=== PATIENT | male | born 1955 | race Caucasian/White ===

== ENCOUNTER 2020-03-22 13:38 | Inpatient (IN) | payer BC, OTHER ==
[~2020-03-22] VITALS: Ht 175.3 cm; Wt 79.4 kg
--- NOTE | 2020-03-22 13:50 | NUR ---
Pt is medically cleared by Dr Orellana. PET program manager Mercedes Vargas RN notified. ETA 1 hour.
[2020-03-22] MEDS ORDERED: ASPI81TA31 PO (13:55)
[2020-03-22] MEDS ORDERED: ATOR40TA PO (13:55)
[2020-03-22] MEDS ORDERED: [UNRECOGNIZED DRUG - OTHER] PO (13:55)
[2020-03-22] MEDS ORDERED: DOCU-141 PO (13:55)
[2020-03-22] MEDS ORDERED: LORA-258 PO (13:55)
--- NOTE | 2020-03-22 15:22 | NUR ---
Snack provided per pt request. walking in the room w/ steady gait. NAD noted.Awating PET qa auditor.
--- NOTE | 2020-03-22 15:40 | NUR ---
Mercedes Ambriz RN from PET at the bedside for psych eval.
[2020-03-22] MEDS ORDERED: LORAZEPAM 0.5 MG TABLET PO ONE (16:15)
[2020-03-22] MEDS ORDERED: LORAZEPAM 1 MG TABLET ONE (16:17)
--- NOTE | 2020-03-22 16:17 | NUR ---
PT walked in to the boothroom and spat out the Ativan PO. Dr Orellana and Mercedes made aware.
--- NOTE | 2020-03-22 16:31 | NUR ---
Pt placed on 5150 hold for GD by Mercedes Ambriz RN.
[2020-03-22 17:00] VITALS: BP 149/94
[2020-03-22] MEDS ORDERED: MAGNESIUM HYDROXIDE 30 ML LIQUID UDC PO PRN (17:30)
[2020-03-22] MEDS ORDERED: LORAZEPAM 1 MG TABLET PO PRN (17:30)
[2020-03-22] MEDS ORDERED: TEMAZEPAM 7.5 MG CAPSULE PO PRN (17:30)
[2020-03-22] MEDS ORDERED: ACETAMINOPHEN 325 MG TABLET PO PRN (17:30)
[2020-03-22] MEDS ORDERED: MAG HYDROX/AL HYDROX/SIMETH 30 ML LIQUID UDC PO PRN (17:30)
[2020-03-22] MEDS ORDERED: BLOOD SUGAR DIAGNOSTIC 1 EACH STRIP VI ONE (17:30)
--- NOTE | 2020-03-22 19:41 | NUR ---
Admitted a 64 years old male patient from ER at 5PM, admitted for GD and on 72hr hold. Patient is AAO x 3, able to express needs. No complains of pain. Vital signs stable. BS checked and 143mg/dl. Patient signed all admission paper works. Initial assessment done. Patient denies and SI while assessment being done. Patient noted being anxious but cooperative and compliant with care. Medication verified by RN mixing and dispensing supervisor. Patient informed regarding rights and hospital policies. Patient requested for family (Emergency contact )to be notified in AM. Needs attended, safety measures in place, endorsed to next shift and will continue with care.
[2020-03-22 20:00] VITALS: BP 140/88
--- NOTE | 2020-03-22 20:32 | NUR ---
Patient received walking in the hallway. AAO x3. Calm and cooperative. History was taken from the patient and he expressed his anxiety about his health. No SI. No behavioral issues. Safety measures maintained. Continue to monitor.
[2020-03-22] MEDS ORDERED: DOCUSATE SODIUM 100 MG CAPSULE PO PRN (22:45)
[2020-03-23 02:31] VITALS: BP 140/88
[2020-03-23 06:19] LABS: EOSINOPHILS # (AUTO) 0.1 K/uL (0.0-0.7); EOSINOPHILS % (AUTO) 1.2 % (0.0-7.0); LYMPHOCYTES # (AUTO) 0.7 K/uL (20.0-40.0); MEAN CORPUSCULAR HGB CONC 33 g/dL (32.5-36.3); MONOCYTES # (AUTO) 0.3 K/uL (2.0-10.0)
[2020-03-23 06:39] LABS: BASOPHILS % (AUTO) 0.7 % (0.0-2.0); HEMATOCRIT 36.6 % (36.7-47.1); HEMOGLOBIN 12.1 g/dL (12.5-16.3); LYMPHOCYTES % (AUTO) 11.2 % (20.5-51.5); MEAN CORPUSCULAR HEMOGLOBIN 30.8 uug (23.8-33.4); MONOCYTES % (AUTO) 4.8 % (0.0-11.0); NEUTROPHILS # (AUTO) 4.8 K/uL (1.8-8.9); NEUTROPHILS % (AUTO) 82.1 % (38.5-71.5); PLATELET COUNT (AUTO) 170 K/uL (152-348); RED BLOOD CELL COUNT(AUTO) 3.93 MIL/uL (4.06-5.63); WHITE BLOOD COUNT (AUTO) 5.9 K/uL (3.6-10.2)
[2020-03-23 06:49] LABS: THYROID STIMULATING HORMONE 2.034 mIU/mL (0.358-3.740)
[2020-03-23 07:08] LABS: POTASSIUM 4.4 mmol/L (3.5-5.1); TOTAL PROTEIN, SERUM 7.4 g/dL (6.4-8.2)
[2020-03-23 07:30] VITALS: BP 159/90
[2020-03-23] MEDS ORDERED: [UNRECOGNIZED DRUG - OTHER] PO SCH (09:00)
[2020-03-23] MEDS: CLONIDINE HCL 0.1 MG TABLET PO PRN (09:22)
[2020-03-23] MEDS: ASPIRIN 81 MG TAB.CHEW PO SCH (09:25)
--- NOTE | 2020-03-23 12:24 | NUR ---
UR Note: This speech writer spoke with nurse outreach case manager Jeanette ([phone]) who stated that patient is authorized for 15 days until April 05. Authorization: [id number]. Per Jeanette, she is cover for the nurse outreach case manager assigned for pt Tri ([phone]) extension: [phone].
--- NOTE | 2020-03-23 12:24 | NUR ---
Social Work Family Contact: This senior underwriter attempted to contact patient's brother Spike ([phone]) but was unavailable.
--- NOTE | 2020-03-23 12:24 | NUR ---
Social Work Initial Discharge Note: Patient currently lives at [address] [place] [address] and would want to return back home. This sign writer letterer or painter attempted to contact patient's brother Spike ([phone]) but was unavailable. This sign writer letterer or painter will work with the family and the MD regarding patient's discharge plan.
[2020-03-23 14:02] LABS: CREATININE 0.7 mg/dL (0.6-1.3)
[2020-03-23 14:12] LABS: MAGNESIUM 2.3 mg/dL (1.8-2.4)
[2020-03-23 14:13] LABS: PHOSPHOROUS 3.9 mg/dL (2.5-4.9)
--- NOTE | 2020-03-23 14:44 | NUR ---
Social Work Family Contact: motion picture set up worker contacted patient's brother Spike ([phone]) and gathered collateral. Per brother, he stated that he is the best contact number and not patient's mother who is demented. Per Spike, he stated that ever since patient lost his job couple of months ago he has been depressed. He has not been eating at home and has lost weight and a month ago he has decreased. Per brother, he stated that patient was prescribed Zoloft and had never took his medications. Per brother, he states that patient believes that his situation is physical and not mental.
[2020-03-23 16:00] VITALS: BP 125/86
[2020-03-23 20:00] VITALS: BP 135/91
[2020-03-23] MEDS: ATORVASTATIN 40 MG TABLET PO SCH (20:24)
[2020-03-23] MEDS: MIRTAZAPINE 15 MG TABLET PO SCH (22:37)
--- NOTE | 2020-03-24 02:32 | NUR ---
GPS: RECEIVE PT AWAKE, A/O X3, VERBALLY COMMUNICATE NEEDS CLEARLY. PT DENIED SI, AND NO INTENT. PT NOTED TO BE A BIT TOO OVER CONCERN WITH HIS HEALTH AND MEDICATIONS. PT WAS ASKING IF HE IS DRINKING ENOUGH WATER FOR HIS HEALTH. ADVISED PT TO DRINK HE IS TOLERATED AND MONITOR HIS OUTPUT. PT DENIED PAIN OR DISCOMFORT BUT SAID HE WILL POSSIBLY NEED SOMETHING TO SLEEP LATER BUT NOT SURE. ENCOURAGED PT TO REQUEST IF UNABLE TO SLEEP BY 2100. PT NOTED PACING IN HALLWAY ON AND OFF. DOCTOR WAS VISITING AND ORDER NEW MED REMERON 15MG Q/HS. ORDER CARRIED OUT AND PT COOPERATIVE. PT ASLEEP AT THIS TIME AND WILL CONTINUE TO MONITOR.
--- NOTE | 2020-03-24 06:40 | NUR ---
PT RESTED WELL DURING NIGHT AND DID NOT REQUIRED SLEEPING AID. SLEPT 7HRS TOTAL. NO BEHAVIOR NOTED.
[2020-03-24 07:30] VITALS: BP 151/90
[2020-03-24] MEDS: ASPIRIN 81 MG TAB.CHEW PO SCH (09:51)
[2020-03-24] MEDS: LOSARTAN POTASSIUM 50 MG TABLET PO SCH (09:51)
[2020-03-24] MEDS: HYDROCHLOROTHIAZIDE 12.5 MG CAPSULE PO SCH (09:52)
[2020-03-24 16:00] VITALS: BP 157/95
--- NOTE | 2020-03-24 17:58 | NUR ---
Patient 1ST Observed awake in room unkempt with disheveled appearance. Patient is AO x2-3, no acute distress noted. Denies pain. Vital signs stable for patient. Compliant with medication. Continues to require observation to ensure patient safety.
[2020-03-24] MEDS: ATORVASTATIN 40 MG TABLET PO SCH (20:32)
[2020-03-24] MEDS: MIRTAZAPINE 15 MG TABLET PO SCH (20:32)
[2020-03-24 21:36] VITALS: BP 136/86
--- NOTE | 2020-03-24 21:44 | NUR ---
GPS: RECEIVED PT IN HALLWAY, PACING WITH ABLE TO REDIRECT. PT ABLE TO STAY CALM AND COOPERATIVE WITH CARE AT THIS TIME. DENIED SI OR INTENT. C/O POSSIBLE NOT HAVING GOOD BM, OFFER STOOL SOFTER BUT REFUSED. PT SAID WILL LIKE TO SEE IF HE WILL HAVE A GOOD BM BY AM. ENCOURAGE TO VENT OUT FEELINGS AND TO ASK FOR PRN. OFFER PLENTY OF WATER TOLERATED. ROUTINE MEDS GIVEN AND CONTINUE MONITOR.
--- NOTE | 2020-03-25 06:27 | NUR ---
Pt slept 5.45mins due to roommate disturbing during night with finding his shoes and thinking Joey had them. Pt was very calm and even apologetic for roommate behavior.
[2020-03-25 07:30] VITALS: BP 149/93
[2020-03-25] MEDS: HYDROCHLOROTHIAZIDE 12.5 MG CAPSULE PO SCH (08:58)
[2020-03-25] MEDS: ASPIRIN 81 MG TAB.CHEW PO SCH (08:58)
[2020-03-25] MEDS: LOSARTAN POTASSIUM 50 MG TABLET PO SCH (08:58)
--- NOTE | 2020-03-25 10:45 | NUR ---
Patient is AAO x 3, NO acute distress noted,able to express needs. Patient noted being anxious and paranoid about health while doing assessment. Patient is directable, calms down after expressing self and situations are explained back. Pt. is compliant with medications and cooperative with care. Safety measures in place, needs attended and will continue with care.
[2020-03-25 16:00] VITALS: BP 123/80
--- NOTE | 2020-03-25 18:45 | NUR ---
Patient paranoid regarding health, asking for VS to be checked several times. Vital signs stable. No c/o pain. Denies any SI. Compliant with medication therapy and care. Verbalizes needs and concerns. All other need attended, safety measures in place and will continue with care.
[2020-03-25] MEDS: MIRTAZAPINE 15 MG TABLET PO SCH (20:38)
[2020-03-25] MEDS: ATORVASTATIN 40 MG TABLET PO SCH (20:38)
[2020-03-25 21:22] VITALS: BP 137/60
[2020-03-26 07:30] VITALS: BP 121/73
[2020-03-26] MEDS: HYDROCHLOROTHIAZIDE 12.5 MG CAPSULE PO SCH (08:42)
[2020-03-26] MEDS: ASPIRIN 81 MG TAB.CHEW PO SCH (08:42)
[2020-03-26] MEDS: LOSARTAN POTASSIUM 50 MG TABLET PO SCH (08:42)
[2020-03-26 16:00] VITALS: BP 122/71
[2020-03-26] MEDS: MIRTAZAPINE 15 MG TABLET PO SCH (20:12)
[2020-03-26] MEDS: ATORVASTATIN 40 MG TABLET PO SCH (20:12)
[2020-03-26 20:20] VITALS: BP 128/79
--- NOTE | 2020-03-27 06:48 | NUR ---
Danielletim slept 7.30 hrs.Alert and oriented x3, calm and cooperative with medication and care.SAfety measures in place.
[2020-03-27 07:30] VITALS: BP 134/89
[2020-03-27] MEDS: ASPIRIN 81 MG TAB.CHEW PO SCH (08:21)
[2020-03-27] MEDS: HYDROCHLOROTHIAZIDE 12.5 MG CAPSULE PO SCH (08:21)
[2020-03-27] MEDS: LOSARTAN POTASSIUM 50 MG TABLET PO SCH (08:21)
[2020-03-27 15:08] VITALS: BP 139/87
[2020-03-27 19:48] VITALS: BP 127/78
[2020-03-27] MEDS: ATORVASTATIN 40 MG TABLET PO SCH (20:11)
[2020-03-27] MEDS: MIRTAZAPINE 15 MG TABLET PO SCH (20:11)
[2020-03-27] MEDS: risperiDONE 0.5 MG TABLET PO SCH (21:15)
--- NOTE | 2020-03-27 23:56 | NUR ---
aaox3 ambulatory. patient compliant with meds. able to express needs. VSS. No acute distress noted. Kept comfortable.Denies any pain nor any discomfort. Will monitor patient. Continent of bowel and bladder.
--- NOTE | 2020-03-28 05:59 | NUR ---
End of the shift note: Quiet night. Needs attended. Slept well most of the shift. No complaints presented so far. VSS.
[2020-03-28 07:30] VITALS: BP 139/85
[2020-03-28] MEDS: LOSARTAN POTASSIUM 50 MG TABLET PO SCH (08:05)
[2020-03-28] MEDS: HYDROCHLOROTHIAZIDE 12.5 MG CAPSULE PO SCH (08:05)
[2020-03-28] MEDS: ASPIRIN 81 MG TAB.CHEW PO SCH (08:05)
[2020-03-28] MEDS: DIVALPROEX 250 MG TABLET.DR PO SCH ×3 (08:05→17:03)
[2020-03-28] MEDS: risperiDONE 0.5 MG TABLET PO SCH ×2 (08:05→20:18)
--- NOTE | 2020-03-28 14:20 | NUR ---
patient remains isolative no interaction with other peels ,compliant with all medication,denies any pain or discomfort ,will continue close monitoring.
[2020-03-28 16:00] VITALS: BP 137/81
[2020-03-28 19:46] VITALS: BP 134/84
[2020-03-28] MEDS: MIRTAZAPINE 15 MG TABLET PO SCH (20:17)
[2020-03-28] MEDS: ATORVASTATIN 40 MG TABLET PO SCH (20:18)
--- NOTE | 2020-03-28 20:53 | NUR ---
awake upon initial rounds. alert and oriented x3-4 VSS. No acute distress noted. Remain isolative. Mainly stays in his room. Compliant with meds. Needs attended. VSS. Voiding well. Will monitor patient.
--- NOTE | 2020-03-29 06:12 | NUR ---
End of shift notes : Slept well most of the shift. No behavioral issues noted. All needs attended and met. No complaints made during the shift. No distress noted.
[2020-03-29 07:30] VITALS: BP 146/75
--- NOTE | 2020-03-29 08:00 | NUR ---
Received pt. in room, patient is AAO x 3, able to express self. No acute distress noted. Vital signs stable. Denies any SI during assessment. Safety needs in place and will continue with care.
[2020-03-29] MEDS: ASPIRIN 81 MG TAB.CHEW PO SCH (09:00)
[2020-03-29] MEDS: risperiDONE 0.5 MG TABLET PO SCH ×2 (09:00→20:26)
[2020-03-29] MEDS: DIVALPROEX 250 MG TABLET.DR PO SCH ×3 (09:00→17:11)
[2020-03-29] MEDS: HYDROCHLOROTHIAZIDE 12.5 MG CAPSULE PO SCH (09:01)
[2020-03-29] MEDS: LOSARTAN POTASSIUM 50 MG TABLET PO SCH (09:01)
[2020-03-29 16:00] VITALS: BP 131/80
--- NOTE | 2020-03-29 18:00 | NUR ---
Patient is compliant with medications and cooperative with care. No concerns raised by patient regarding health condition. patient stated "feeling better now". Took all due medications and tolerated well. Patient still noted staying to self and stays in the room for most of the shift. Safety needs in place and will continue with care.
[2020-03-29] MEDS: MIRTAZAPINE 15 MG TABLET PO SCH (20:26)
[2020-03-29] MEDS: ATORVASTATIN 40 MG TABLET PO SCH (20:26)
[2020-03-29 21:10] VITALS: BP 142/78
--- NOTE | 2020-03-30 05:27 | NUR ---
Patient slept 6.30 hours last night. Patient got up twice c/o temperature too hot. Declined a sleeping pill and stayed mostly in his room during the evening isolating. When assembly instructions writer asked patient does he feel like he is ready to go home, The response was "Not really. I feel like I am a 4 out of 10." Electromechanical Equipment Assembler tried to get patient to explain further , but patient shut down. No acute issues noted during the night.
[2020-03-30 07:30] VITALS: BP 145/78
[2020-03-30] MEDS: ASPIRIN 81 MG TAB.CHEW PO SCH (08:17)
[2020-03-30] MEDS: risperiDONE 0.5 MG TABLET PO SCH ×2 (08:17→20:52)
[2020-03-30] MEDS: DIVALPROEX 250 MG TABLET.DR PO SCH ×3 (08:17→17:57)
[2020-03-30] MEDS: HYDROCHLOROTHIAZIDE 12.5 MG CAPSULE PO SCH (08:18)
[2020-03-30] MEDS: LOSARTAN POTASSIUM 50 MG TABLET PO SCH (08:19)
[2020-03-30 16:00] VITALS: BP 135/84
--- NOTE | 2020-03-30 18:48 | NUR ---
patient calm and medication compliant. Need encouragement to attend activity.
[2020-03-30 20:26] VITALS: BP 120/76
[2020-03-30] MEDS: ATORVASTATIN 40 MG TABLET PO SCH (20:52)
[2020-03-30] MEDS: MIRTAZAPINE 15 MG TABLET PO SCH (20:52)
--- NOTE | 2020-03-30 21:26 | NUR ---
GPS/NSG Patient firdt observed in room awake appearance disheveled,& unkempt despite compliance with shower after many days he refused. Patient compliant with HS medication. Denies S/I, H/I and verbalized to staff that he was feeling less depressed today and had attended group. Patient continues to require observation for safety.
[2020-03-31 07:30] VITALS: BP 140/78
[2020-03-31] MEDS: LOSARTAN POTASSIUM 50 MG TABLET PO SCH (08:25)
[2020-03-31] MEDS: ASPIRIN 81 MG TAB.CHEW PO SCH (08:25)
[2020-03-31] MEDS: risperiDONE 0.5 MG TABLET PO SCH ×2 (08:25→20:34)
[2020-03-31] MEDS: DIVALPROEX 250 MG TABLET.DR PO SCH ×3 (08:25→17:02)
[2020-03-31] MEDS: HYDROCHLOROTHIAZIDE 12.5 MG CAPSULE PO SCH (08:27)
[2020-03-31 16:00] VITALS: BP 138/75
[2020-03-31 20:17] VITALS: BP 136/83
[2020-03-31] MEDS: ATORVASTATIN 40 MG TABLET PO SCH (20:34)
[2020-03-31] MEDS: MIRTAZAPINE 15 MG TABLET PO SCH (20:34)
--- NOTE | 2020-04-01 06:36 | NUR ---
Received Pt in bed lying down, awake. A+Ox3, pleasant on approach. Pt is withdrawn and isolative, stays in his room despite encouragement to come out to the day room and interact with staff and peers. Denies SI/HI and verbally contracts for safety. Exhibits flat affect, restricted speech, and poor eye contact. Compliant with medications, consumed 100% of snacks. Appears disheveled, refused shower. Denies pain, VS stable.
[2020-04-01 07:55] VITALS: BP 148/84
[2020-04-01] MEDS: HYDROCHLOROTHIAZIDE 12.5 MG CAPSULE PO SCH (08:26)
[2020-04-01] MEDS: DIVALPROEX 250 MG TABLET.DR PO SCH ×3 (08:26→16:53)
[2020-04-01] MEDS: risperiDONE 0.5 MG TABLET PO SCH ×2 (08:26→20:02)
[2020-04-01] MEDS: LOSARTAN POTASSIUM 50 MG TABLET PO SCH (08:26)
[2020-04-01] MEDS: ASPIRIN 81 MG TAB.CHEW PO SCH (08:26)
[2020-04-01 15:22] VITALS: BP 146/80
[2020-04-01] MEDS: CLONIDINE HCL 0.1 MG TABLET PO PRN (19:51)
[2020-04-01 19:52] VITALS: BP 151/88
[2020-04-01] MEDS: ATORVASTATIN 40 MG TABLET PO SCH (20:02)
[2020-04-01] MEDS: MIRTAZAPINE 15 MG TABLET PO SCH (20:02)
--- NOTE | 2020-04-02 06:30 | NUR ---
PT SLEPT 4 HOURS and 30 minutes. PT IN NO ACUTE DISTRESS. PT KEEP ASKING TO MAKE THE TEMPERATURE COLDER . STAFF ADJUSTED THE TEMPERATURE. PRESCRIBED MEDICATION GIVEN AND PT TOLERATED IT WELL. GIVEN SLEEPING MEDICATION PRN. PT TOLERATED IT WELL. SAFETY AND COMFORT PROVIDED. ALL NEEDS ARE MET. WILL ENDORSE TO INCOMING NURSE FOR CONTINUITY OF CARE.
[2020-04-02 07:30] VITALS: BP 145/89
[2020-04-02] MEDS: DIVALPROEX 250 MG TABLET.DR PO SCH ×3 (08:28→16:04)
[2020-04-02] MEDS: LOSARTAN POTASSIUM 50 MG TABLET PO SCH (08:29)
[2020-04-02] MEDS: risperiDONE 0.5 MG TABLET PO SCH ×2 (08:29→20:34)
[2020-04-02] MEDS: ASPIRIN 81 MG TAB.CHEW PO SCH (08:29)
[2020-04-02] MEDS: HYDROCHLOROTHIAZIDE 12.5 MG CAPSULE PO SCH (08:42)
[2020-04-02 16:00] VITALS: BP 132/82
[2020-04-02 20:00] VITALS: BP 133/66
[2020-04-02] MEDS: ATORVASTATIN 40 MG TABLET PO SCH (20:34)
[2020-04-02] MEDS: MIRTAZAPINE 15 MG TABLET PO SCH (20:34)
--- NOTE | 2020-04-03 03:31 | NUR ---
RECEIVED PATIENT IN BED.NOTED ISOLATIVE AND WITHDRAWN WITH LITTLE TO NO INTERACTION WITH PEERS OR STAFF. AFFECT-FLAT.HOWEVER ABLE TO VERBALIZE NEEDS.COMPLIANT WITH CARE AND MEDICATIONS.DENIES SI/HI.VISUAL CHECKS MADE ON HIM FOR SAFETY. WILL CONTINUE TO MONITOR.
--- NOTE | 2020-04-03 06:50 | NUR ---
SLEPT FOR 6:30HOURS. REFUSED TO HAVE LABS DRAWN ON HIM.EDUCATION OF ITS IMPORTANCE DID NOT WORK.
[2020-04-03 07:53] VITALS: BP 147/88
[2020-04-03] MEDS: ASPIRIN 81 MG TAB.CHEW PO SCH (08:24)
[2020-04-03] MEDS: DIVALPROEX 250 MG TABLET.DR PO SCH ×3 (08:24→16:52)
[2020-04-03] MEDS: risperiDONE 0.5 MG TABLET PO SCH ×2 (08:24→20:43)
[2020-04-03] MEDS: HYDROCHLOROTHIAZIDE 12.5 MG CAPSULE PO SCH (08:25)
[2020-04-03] MEDS: LOSARTAN POTASSIUM 50 MG TABLET PO SCH (08:25)
--- NOTE | 2020-04-03 11:10 | NUR ---
FAMILY CONTACT: NOAM contacted Patients brotherSpike ([phone]) to coordinate discharge and transportation. NOAM informed him that pt will be discharged on 04/05/20. Per Spike, he will have pts other brother Bobby ([phone]) pick pt up and transport home and he will call SW to confirm fish bait picker time.
--- NOTE | 2020-04-03 12:10 | NUR ---
UR NOTE: SW contacted case preparer and liner assigned for pt Tri ([phone]) extension: [phone] and left a voicemail requesting psychiatrist appointment and also provided a discharge summary. SW requested callback.
--- NOTE | 2020-04-03 14:49 | NUR ---
FAMILY CONTACT: SW received a call from pts brother Bobby ([phone]) who confirmed he will be picking pt up between 1:00pm-2:30pm and will be transporting pt back home.
[2020-04-03 15:35] VITALS: BP 145/83
[2020-04-03 20:02] VITALS: BP 144/78
[2020-04-03] MEDS: MIRTAZAPINE 15 MG TABLET PO SCH (20:43)
[2020-04-03] MEDS: ATORVASTATIN 40 MG TABLET PO SCH (20:43)
--- NOTE | 2020-04-04 06:38 | NUR ---
Slept 5.45 hrs.
[2020-04-04 07:30] VITALS: BP 144/89
[2020-04-04] MEDS: ASPIRIN 81 MG TAB.CHEW PO SCH (08:41)
[2020-04-04] MEDS: LOSARTAN POTASSIUM 50 MG TABLET PO SCH (08:42)
[2020-04-04] MEDS: DIVALPROEX 250 MG TABLET.DR PO SCH ×3 (08:42→17:24)
[2020-04-04] MEDS: risperiDONE 0.5 MG TABLET PO SCH ×2 (08:42→20:38)
[2020-04-04] MEDS: HYDROCHLOROTHIAZIDE 12.5 MG CAPSULE PO SCH (08:43)
--- NOTE | 2020-04-04 09:59 | NUR ---
NOAM COORDINATION OF CARE: NOAM contacted Network Announcer: Dr. Alexei Burch [address] [facility] [address]. to schedule a follow up appointment for 04/26/20 at 0830. NOAM also contacted Psychiatrist: Dr. John Garcia Address: [address] [place], [place] [id number] and left a voicemail for callback.
--- NOTE | 2020-04-04 12:38 | NUR ---
SW COORDINATION OF CARE: SW contacted Psychiatrist: Dr. John Garcia Address: [address] [place] [id number] and spoke with Mckenna, medical receptionist who stated SW needed to contact [facility] Address: [address], [place] [address] for referral.
--- NOTE | 2020-04-04 12:42 | NUR ---
NOAM COORDINATION OF CARE: NOAM contacted [facility] Address: [address], [place] [address] and requested referral packet be faxed.
--- NOTE | 2020-04-04 13:13 | NUR ---
NOAM COORDINATION OF CARE: NOAM faxed referral for mental health services to [facility] Address: [address], [place] [address] .
[2020-04-04 16:04] VITALS: BP 118/72
[2020-04-04 19:58] VITALS: BP 153/84
[2020-04-04] MEDS: ATORVASTATIN 40 MG TABLET PO SCH (20:38)
[2020-04-04] MEDS: MIRTAZAPINE 15 MG TABLET PO SCH (20:38)
--- NOTE | 2020-04-05 06:59 | NUR ---
patient slept for approx. 5.45 hrs through the night. Patient somewhat isolative. Up for D/C today. pt aware of D/C. will continue to monitor.
[2020-04-05 07:30] VITALS: BP 146/86
[2020-04-05] MEDS: ASPIRIN 81 MG TAB.CHEW PO SCH (08:40)
[2020-04-05 08:41] VITALS: BP 146/86
[2020-04-05] MEDS: risperiDONE 0.5 MG TABLET PO SCH (08:41)
[2020-04-05] MEDS: DIVALPROEX 250 MG TABLET.DR PO SCH ×2 (08:41→12:03)
[2020-04-05] MEDS: HYDROCHLOROTHIAZIDE 12.5 MG CAPSULE PO SCH (08:41)
[2020-04-05] MEDS: LOSARTAN POTASSIUM 50 MG TABLET PO SCH (08:41)
--- NOTE | 2020-04-05 09:22 | NUR ---
NOAM COORDINATION OF CARE: SW received a call from Marilia, coordinator at [facility] Address: [address], [place] [address] stating that she received referral and an appointment has been scheduled 04/10/20 at 1330.
--- NOTE | 2020-04-05 09:35 | NUR ---
DISCHARGE NOTE: Pt will be discharged via private vehicle between 1:00pm-2:30pm home [address] [place] [id number]. Pts brother Bobby ([phone]) will be picking pt up and transporting home. Pts mood is anxious with congruent affect. Pt denied visual/auditory hallucinations and denied suicidal/homicidal ideation. Pt is alert and oriented x4, pt is appropriately dressed and groomed. Pt will follow up with [facility] Address: [address], [place] [address] on 04/10/20 at 1330. Pt will also follow up with [facility] Alarm Inspector: Dr. Alexei Burch [address] [facility] [id number]. appointment on 04/26/20 at 0830. The multidisciplinary exit care form was done, printed, signed, and given to the patient.
--- NOTE | 2020-04-05 09:50 | NUR ---
Received patient in room, awake, alert and verbally responsive. no signs of distress noted. No complain of pain or discomforts. NO SI/HI noted.compliant with All medications. safety Measures provided. Will continue to monitor.
--- NOTE | 2020-04-05 10:49 | NUR ---
COLLATERAL CONTACT: SW received a call from Joann social media assistant at [facility] Address: [facility], [place] [address] stating that she received a call from pts family stating that they don't feel pt is ready for discharge. NOAM informed her that pt no longer meets criteria for acute psychiatric hospitalization and has placed DC order for this day as pt is stable for discharge. NOAM informed her that pt has been scheduled with follow up appointments with his PCP and with [facility] mental health services.
--- NOTE | 2020-04-05 10:54 | NUR ---
FAMILY CONTACT: NOAM contacted Patients brotherSpike ([phone]) to inform him of call NOAM received from [facility] NOAM. Brother states that he feels pt should stay in the hospital longer. SW informed him that pt no longer meets criteria for acute psychiatric hospitalization and is stable for discharge. Brother stated that he feels pt is being discharged due to pts insurance not authorizing any more days. NOAM informed him that pt is stable and no longer meets criteria per MD. NOAM informed him that pt has been scheduled with follow up appointment with his PCP and with [facility]. Brother agreed with discharge plan.
--- NOTE | 2020-04-05 11:33 | NUR ---
UR NOTE: SW contacted caser assigned for pt Tri ([phone]) extension: [phone] and completed discharge clinical via voicemail.
--- NOTE | 2020-04-05 13:28 | NUR ---
Patient is awake, alert and verbally responsive. No signs of distress noted. Afebrile. Compliant with medication and treatment. No SI/HI noted. Patient with Order to be Discharge Home today. All Discharge Instruction given to patient and verbalized Understanding. All belongings and Contraband was signed and sent with patient. Removed Wrist band. Patient was Picked up by brother Bobby via Private car in stable condition.
== END 2020-04-05 13:30 | disposition home or self-care (01) | DRG 885 ==
LOC: ER 13:38 → GPS 16:32
PROVIDERS: ADMIT Psychiatry & Neurology Psychiatry; ATTEND Internal Medicine
DX: F31.5 Bipolar disorder, current episode depressed, severe, with psychotic features (principal); F41.9 Anxiety disorder, unspecified; I10 Essential (primary) hypertension; E78.5 Hyperlipidemia, unspecified; R73.03 Prediabetes; K43.9 Ventral hernia without obstruction or gangrene; D64.9 Anemia, unspecified
CPT/HCPCS: 36415; 83735; 84100; 84443; 85025; A4663; J3490